=== PATIENT | male | born 1960 | race Caucasian/White ===

== ENCOUNTER 2020-01-06 15:51 | Inpatient (IN) | payer MEDICARE, BC ==
[2020-01-06] MEDS ORDERED: SODIUM CHLORIDE 0.9% 500 ML 500 ML IV STA (16:05)
--- NOTE | 2020-01-06 16:09 | ED ---
General Adult HPI - General Chief complaint: Syncope Stated complaint: Syncope Time Seen by Provider: 01/06/20 15:59 Source: patient, EMS, RN notes reviewed, old records reviewed Mode of arrival: EMS Limitations: no limitations - History of Present Illness Initial comments: 59-year-old male presenting for evaluation of syncope. Patient states he just o rdered a pizza, he had 2 sips of a beer and the next thing he knew he had fallen out of his chair. No preceding palpitations or chest pain. This was the first meal of the day and he had not eaten yet. His 4 PM at the time of arrival. He denies nausea vomiting or abdominal pain. Denies fever. Denies cough or dyspnea. Denies chest pain. He states he did injure his right elbow and right foot. Patient states he has had multiple medication changes over the past several months for his hypertension. He additionally was dealing with some hyponatremia as well as hypokalemia and is currently on potassium supplementation. He was previously on sodium supplementation. - Related Data Allergies Allergy/AdvReac Type Severity Reaction Status Date / Time codeine Allergy Unknown Verified 01/06/20 16:00 Childhood Review of Systems ROS Statement: Those systems with pertinent positive or pertinent negative responses have been documented in the HPI. ROS Other: All systems not noted in ROS Statement are negative. Past Medical History Past Medical History: Hypertension Additional Past Medical History / Comment(s): chronic back pain History of Any Multi-Drug Resistant Organisms: None Reported Past Surgical History: Back Surgery, Orthopedic Surgery Past Psychological History: No Psychological Hx Reported Smoking Status: Never smoker Past Alcohol Use History: Occasional Past Drug Use History: None Reported General Exam Limitations: no limitations General appearance: alert, in no apparent distress Head exam: Present: atraumatic, normocephalic Eye exam: Present: normal appearance, PERRL ENT exam: Present: mucous membranes dry Neck exam: Present: normal inspection. Absent: tenderness, meningismus Respiratory exam: Present: normal lung sounds bilaterally. Absent: respiratory distress, wheezes Cardiovascular Exam: Present: regular rate, normal rhythm GI/Abdominal exam: Present: soft. Absent: distended, tenderness, guarding Extremities exam: Present: other (Skin tear, right elbow, normal range of motion) Neurological exam: Present: alert, oriented X3, CN II-XII intact. Absent: motor sensory deficit Course Vital Signs 01/06/20 15:53 Temperature 97.7 F Pulse Rate 73 Respiratory 18 Rate Blood Pressure 138/87 O2 Sat by Pulse 98 Oximetry EKG Findings - EKG Comments: EKG Findings:: EKG: Normal sinus rhythm with prolonged QT, rate of 72, [place] interval 168, QRS duration 108, QTC 499, no ST segment elevation. Medical Decision Making - Medical Decision Making 59-year-old male with syncopal episode, EKG showing prolonged QT, sinus rhythm. Patient has a chest x-ray with the right pleural effusion, question pneumonia although the patient has not had any cough or fever. I did x-rays right foot for trauma and there is no fracture dislocation. He has significant lateral and abnormalities with no baseline for comparison. He has a sodium of 124, potassium of 2.4. A magnesium of 1.0. And a calcium of 7.4 which is corrected to 8. Patient is given IV magnesium, sodium chloride, both oral and IV potassium in the emergency department. He will be admitted for electrolyte replacement, telemetry, and nephrology consultation. CO2 is elevated, venous gas has been ordered, results pending. - Lab Data Result diagrams: 01/06/20 16:32 01/06/20 16:32 Lab Results 01/06/20 01/06/20 01/06/20 Range/Units 16:32 16:32 16:32 WBC 10.1 (3.8-10.6) k/uL RBC 4.38 (4.30-5.90) m/uL Hgb 12.7 L (13.0-17.5) gm/dL Hct 38.8 L (39.0-53.0) % MCV 88.5 (80.0-100.0) fL MCH 29.0 (25.0-35.0) pg MCHC 32.8 (31.0-37.0) g/dL RDW 15.6 H (11.5-15.5) % Plt Count 520 H (150-450) k/uL Neutrophils % 78 % Lymphocytes % 12 % Monocytes % 7 % Eosinophils % 1 % Basophils % 1 % Neutrophils # 7.9 H (1.3-7.7) k/uL Lymphocytes # 1.2 (1.0-4.8) k/uL Monocytes # 0.7 (0-1.0) k/uL Eosinophils # 0.1 (0-0.7) k/uL Basophils # 0.1 (0-0.2) k/uL PT 10.9 (9.0-12.0) sec INR 1.1 (<1.2) APTT 25.4 (22.0-30.0) sec Sodium (137-145) mmol/L Potassium (3.5-5.1) mmol/L Chloride (98-107) mmol/L Carbon Dioxide (22-30) mmol/L Anion Gap mmol/L BUN (9-20) mg/dL Creatinine (0.66-1.25) mg/dL Est GFR (CKD-EPI)AfAm (>60 ml/min/1.73 sqM) Est GFR (CKD-EPI)NonAf (>60 ml/min/1.73 sqM) Glucose (74-99) mg/dL Calcium (8.4-10.2) mg/dL Magnesium (1.6-2.3) mg/dL Total Bilirubin (0.2-1.3) mg/dL AST (17-59) U/L ALT (4-49) U/L Alkaline Phosphatase (38-126) U/L Troponin I (0.000-0.034) ng/mL Total Protein (6.3-8.2) g/dL Albumin (3.5-5.0) g/dL Urine Color Light Yellow Urine Appearance Clear (Clear) Urine pH 8.0 (5.0-8.0) Ur Specific Neal 1.004 (1.001-1.035) Urine Protein Negative (Negative) Urine Glucose (UA) Negative (Negative) Urine Ketones Negative (Negative) Urine Blood Negative (Negative) Urine Nitrite Negative (Negative) Urine Bilirubin Negative (Negative) Urine Urobilinogen <2.0 (<2.0) mg/dL Ur Leukocyte Esterase Negative (Negative) Serum Alcohol mg/dL 01/06/20 01/06/20 Range/Units 16:32 16:32 WBC (3.8-10.6) k/uL RBC (4.30-5.90) m/uL Hgb (13.0-17.5) gm/dL Hct (39.0-53.0) % MCV (80.0-100.0) fL MCH (25.0-35.0) pg MCHC (31.0-37.0) g/dL RDW (11.5-15.5) % Plt Count (150-450) k/uL Neutrophils % % Lymphocytes % % Monocytes % % Eosinophils % % Basophils % % Neutrophils # (1.3-7.7) k/uL Lymphocytes # (1.0-4.8) k/uL Monocytes # (0-1.0) k/uL Eosinophils # (0-0.7) k/uL Basophils # (0-0.2) k/uL PT (9.0-12.0) sec INR (<1.2) APTT (22.0-30.0) sec Sodium 126 L (137-145) mmol/L Potassium 2.4 L* (3.5-5.1) mmol/L Chloride 75 L (98-107) mmol/L Carbon Dioxide 43 H* (22-30) mmol/L Anion Gap 8 mmol/L BUN 7 L (9-20) mg/dL Creatinine 0.66 (0.66-1.25) mg/dL Est GFR (CKD-EPI)AfAm >90 (>60 ml/min/1.73 sqM) Est GFR (CKD-EPI)NonAf >90 (>60 ml/min/1.73 sqM) Glucose 105 H (74-99) mg/dL Calcium 7.4 L (8.4-10.2) mg/dL Magnesium 1.0 L (1.6-2.3) mg/dL Total Bilirubin 0.7 (0.2-1.3) mg/dL AST 22 (17-59) U/L ALT 10 (4-49) U/L Alkaline Phosphatase 120 (38-126) U/L Troponin I 0.012 (0.000-0.034) ng/mL Total Protein 6.4 (6.3-8.2) g/dL Albumin 3.3 L (3.5-5.0) g/dL Urine Color Urine Appearance (Clear) Urine pH (5.0-8.0) Ur Specific Neal (1.001-1.035) Urine Protein (Negative) Urine Glucose (UA) (Negative) Urine Ketones (Negative) Urine Blood (Negative) Urine Nitrite (Negative) Urine Bilirubin (Negative) Urine Urobilinogen (<2.0) mg/dL Ur Leukocyte Esterase (Negative) Serum Alcohol <10 mg/dL Disposition Clinical Impression: Syncope, Hyponatremia, Hypokalemia, Hypomagnesemia Disposition: ADMITTED IP TO THIS HOSP Condition: Stable Is patient prescribed a controlled substance at d/c from ED?: No Referrals: Nikia Villaseñor MD [Primary Care Provider] - 1-2 days Decision to Admit Reason: Admit from EC Decision Date: 01/06/20 Decision Time: 17:21
[2020-01-06 16:42] LABS: Basophils # (A) 0.1 k/uL (0-0.2); Basophils % (A) 1 %; Eosinophils # (A) 0.1 k/uL (0-0.7); Eosinophils % (A) 1 %; HCT 38.8 % (39.0-53.0); HGB 12.7 gm/dL (13.0-17.5); Lymphocytes # (A) 1.2 k/uL (1.0-4.8); Lymphocytes % (A) 12 %; MCHC 32.8 g/dL (31.0-37.0); MCV 88.5 fL (80.0-100.0); Mean Platelet Volume 6.3; Monocytes # (A) 0.7 k/uL (0-1.0); Monocytes % (A) 7 %; Neutrophils # (A) 7.9 k/uL (1.3-7.7); Neutrophils % (A) 78 %; Platelet Count 520 k/uL (150-450); RBC 4.38 m/uL (4.30-5.90); RDW 15.6 % (11.5-15.5); WBC 10.1 k/uL (3.8-10.6)
[2020-01-06 16:51] LABS: ALT 10 U/L (4-49); AST 22 U/L (17-59); African American GFR (CKD) >90 (>60 ml/min/1.73 sqM); Albumin 3.3 g/dL (3.5-5.0); Alcohol <10 mg/dL; Alkaline Phosphatase 120 U/L (38-126); Blood Urea Nitrogen 7 mg/dL (9-20); Calcium 7.4 mg/dL (8.4-10.2); Chloride 75 mmol/L (98-107); Glucose 105 mg/dL (74-99); Non-African American GFR(CKD) >90 (>60 ml/min/1.73 sqM); Sodium 126 mmol/L (137-145); Total Bilirubin 0.7 mg/dL (0.2-1.3); Total Protein 6.4 g/dL (6.3-8.2)
[2020-01-06 16:54] LABS: Appearance,Urine Clear (Clear); Bilirubin,Urine Negative (Negative); Blood,Urine Negative (Negative); Color,Urine Light Yellow; Glucose,Urine (UA) Negative (Negative); Ketones,Urine Negative (Negative); Leukocyte Esterase,Urine Negative (Negative); Nitrite,Urine Negative (Negative); Protein,Urine Negative (Negative); Specific Gravity,Urine 1.004 (1.001-1.035); Urobilinogen,Urine <2.0 mg/dL (<2.0)
[2020-01-06 16:56] LABS: Anion Gap 8 mmol/L
[2020-01-06 16:57] LABS: INR 1.1 (<1.2); Partial Thromboplastin Time 25.4 sec (22.0-30.0); Prothrombin Time 10.9 sec (9.0-12.0)
--- NOTE | 2020-01-06 17:00 | XR ---
EXAMINATION TYPE: XR chest 2V DATE OF EXAM: 01/06/2020 COMPARISON: NONE HISTORY: Syncope TECHNIQUE: 2 views FINDINGS: There is blunting right costophrenic angle. There is infiltrate right lung base. Left lung is clear. There is no heart failure. There is left shoulder prosthesis. IMPRESSION: Right pleural effusion and right lower lobe pneumonia and atelectasis. Normal heart.
--- NOTE | 2020-01-06 17:01 | XR ---
EXAMINATION TYPE: XR foot complete RT DATE OF EXAM: 01/06/2020 COMPARISON: None HISTORY: Foot pain after falling TECHNIQUE: 3 views FINDINGS: There is mild hallux valgus. There is hyperextension of the MP joints. I see no fracture no r dislocation. Metatarsals are intact. Tarsal bones are intact. IMPRESSION: Multiple hammertoe deformity. No fracture seen.
[2020-01-06 17:03] LABS: Carbon Dioxide 43 mmol/L (22-30); Potassium 2.4 mmol/L (3.5-5.1)
[2020-01-06] MEDS ORDERED: POTASSIUM CHLORIDE ER 20 MEQ TAB.ER PO STA (17:04)
[2020-01-06] MEDS ORDERED: NALOXONE 0.4 MG/ML 1 ML VIAL IV PRN (17:17)
[2020-01-06] MEDS: SODIUM CHLORIDE 0.9% 1,000 ML IV SCH (17:22)
[2020-01-06] MEDS: MAGNESIUM SULFATE-D5W PMX 1 GM in DEXTROSE/WATER 1 100ML.BAG IVPB SCH ×2 (17:23→18:47)
[2020-01-06] MEDS: POTASSIUM CHLORIDE 10 MEQ in WATER FOR INJECTION 1 100ML.BAG IVPB SCH ×4 (17:23→21:20)
[2020-01-06 17:51] LABS: VBG PH 7.47 (7.31-7.41)
[2020-01-06] MEDS: ACETAMINOPHEN TAB 325 MG TAB PO PRN (23:20)
[2020-01-07] MEDS: SODIUM CHLORIDE 0.9% 1,000 ML IV SCH ×2 (06:37→23:29)
[2020-01-07] MEDS: IPRATROPIUM 0.5 MG/2.5 ML NEBU INHALATION SCH ×4 (07:48→20:35)
[2020-01-07] MEDS: PANTOPRAZOLE 40 MG TABLET PO SCH ×3 (08:57→20:56)
[2020-01-07] MEDS: ACETAMINOPHEN TAB 325 MG TAB PO PRN (08:58)
[2020-01-07] MEDS: ISOSORBIDE MONONITRATE ER 30 MG TAB.ER.24H PO SCH (08:58)
[2020-01-07] MEDS: LOSARTAN 50 MG TAB PO SCH ×2 (08:58→20:56)
[2020-01-07] MEDS: FLUDROCORTISONE 0.1 MG TAB PO SCH ×2 (08:59→23:31)
[2020-01-07] MEDS ORDERED: POTASSIUM CHLORIDE ER 10 MEQ TAB.ER.PRT PO SCH (09:00)
[2020-01-07] MEDS ORDERED: BUMETANIDE 1 MG TAB PO SCH (09:00)
[2020-01-07 09:14] LABS: HGB 12.2 gm/dL (13.0-17.5); MCH 29.8 pg (25.0-35.0); MCHC 32.9 g/dL (31.0-37.0); MCV 90.7 fL (80.0-100.0); Mean Platelet Volume 6.3; Platelet Count 477 k/uL (150-450); RBC 4.08 m/uL (4.30-5.90); RDW 15.7 % (11.5-15.5)
[2020-01-07 09:21] LABS: African American GFR (CKD) >90 (>60 ml/min/1.73 sqM); Blood Urea Nitrogen 7 mg/dL (9-20); Calcium 7.5 mg/dL (8.4-10.2); Chloride 81 mmol/L (98-107); Glucose 123 mg/dL (74-99); Magnesium 1.5 mg/dL (1.6-2.3); Non-African American GFR(CKD) >90 (>60 ml/min/1.73 sqM); Sodium 129 mmol/L (137-145)
[2020-01-07 09:28] LABS: Anion Gap 7 mmol/L
[2020-01-07 09:32] LABS: Carbon Dioxide 41 mmol/L (22-30); Potassium 2.4 mmol/L (3.5-5.1)
[2020-01-07] MEDS ORDERED: POTASSIUM CHLORIDE ER 20 MEQ TAB.ER PO STA (10:36)
[2020-01-07] MEDS ORDERED: MAGNESIUM SULFATE-D5W PMX 1 GM in DEXTROSE/WATER 1 100ML.BAG IVPB ONE (11:00)
[2020-01-07] MEDS ORDERED: POTASSIUM CHLORIDE 20 MEQ in WATER FOR INJECTION 1 100ML.BAG IVPB ONE (11:00)
--- NOTE | 2020-01-07 13:30 | P.NPCON ---
History of Present Illness - Reason for Consult Consult date: 01/07/20 hyponatremia - Chief Complaint Syncope with multiple electrolyte abnormalities - History of Present Illness Is a 59-year-old male who is admitted after having a syncopal episode. He was found to have sodium of 126 on admission, potassium of 2.4, bicarb of 43, creatinine of 0.6. Magnesium was 1 calcium is 7.4. Blood sugar was 105. His medications included Bumex, Florinef 0.1 twice a day, multiple inhalers, potassium,. Patient denies any nausea vomiting diarrhea abdominal pain no fever chills cough. He was diagnosed with adrenal insufficiency. He does not remember having had any ACTH stimulation test. Denies any history of alcohol use. Other than hypertension, asthma, and adrenal insufficiency which was diagnosed recently, no other chronic medical conditions. Past Medical History Past Medical History: Hypertension Additional Past Medical History / Comment(s): chronic back pain History of Any Multi-Drug Resistant Organisms: None Reported Past Surgical History: Back Surgery, Orthopedic Surgery Past Psychological History: No Psychological Hx Reported Smoking Status: Never smoker Past Alcohol Use History: Occasional Past Drug Use History: None Reported Medications and Allergies Home Medications Medication Instructions Recorded Confirmed Type Albuterol Sulfate [Albuterol 2 puff PO RT-Q4H PRN 01/06/20 01/06/20 History Sulfate Hfa] Bumetanide 2 mg PO TID 01/06/20 01/06/20 History Cetirizine HCl 10 mg PO HS 01/06/20 01/06/20 History Fludrocortisone [Florinef] 0.1 mg PO BID 01/06/20 01/06/20 History Isosorbide Mononitrate ER [Imdur] 30 mg PO DAILY 01/06/20 01/06/20 History Losartan [Cozaar] 50 mg PO BID 01/06/20 01/06/20 History Montelukast Sodium [Singulair] 10 mg PO HS 01/06/20 01/06/20 History Omeprazole 20 mg PO TID 01/06/20 01/06/20 History Potassium Chloride [Klor-Con 10] 10 meq PO DAILY 01/06/20 01/06/20 History Tiotropium [place] [Spiriva 2 spray INHALATION RT-DAILY 01/06/20 01/06/20 History Respimat] Allergies Allergy/AdvReac Type Severity Reaction Status Date / Time codeine Allergy Unknown Verified 01/06/20 17:48 Childhood Physical Exam Vitals: Vital Signs Temp Pulse Pulse Resp BP BP Pulse Ox 01/07/20 11:46 98.2 F 69 18 176/96 96 01/07/20 11:23 78 01/07/20 11:10 78 01/07/20 08:00 98.1 F 75 77 18 161/84 95 01/07/20 07:49 75 95 01/07/20 03:59 98.2 F 69 19 164/84 96 01/07/20 00:00 98 F 79 16 118/73 93 L 01/06/20 20:00 98.4 F 75 18 163/83 97 01/06/20 17:50 98.1 F 70 18 142/80 98 01/06/20 17:44 98.4 F 18 99 01/06/20 15:53 97.7 F 73 18 138/87 98 Intake and Output 01/06/20 01/07/20 01/07/20 22:59 06:59 14:59 Intake Total 240 Output Total 350 175 Balance -350 65 Intake: Oral 240 Output: Urine 350 175 Other: Voiding Method Toilet Toilet Toilet Weight 103.419 kg 102.1 kg Examination he is awake alert oriented comfortable HEENT exam no JVP neck is supple no facial asymmetry Lungs are clear to auscultation good air entry bilaterally Heart sounds are unremarkable for any murmur rub gallop Abdomen soft nontender no organomegaly ascites masses Extremity exam reveals chronic good duration of the skin no edema Neurologically awake alert oriented Results - Lab Results Most recent lab results Calcium 7.5 mg/dL (8.4-10.2) L 01/07/20 08:45 Magnesium 1.5 mg/dL (1.6-2.3) L 01/07/20 08:45 01/07/20 08:45 01/07/20 08:45 Assessment and Plan Assessment: Impression 1. Syncope secondary to multiple electrolyte abnormalities including hyponatremia hypokalemia hypomagnesemia. 2. Cause of hyponatremia, hyperkalemia and metabolic alkalosis his diuretic use. Her sodium was 126, potassium was 2.4, bicarb is 43 3. History of adrenal insufficiency although clear if he had a satisfactory ACTH stimulation test. Was started on Florinef recently about few weeks ago. 4. Cause of hypomagnesemia likely from Bumex. Magnesium was 1 5. Cause of hypocalcemia from hypomagnesemia 6. History of asthma 7. Hypertension Recommendation 1. Replace magnesium with 4 g slowly over 4 hours IV piggyback 2. Replace potassium, his deficit is large so will give him 40 mEq every 2 hours 3. Continue IV normal saline, increase the rate to 150 mL 4. Check urine sodium, urine osmolality, urine potassium, urine chloride 5. Patient would like to be discharged as he has responsibilities at home. We'll try to see if we can do it ACTH stimulation test
[2020-01-07] MEDS: MAGNESIUM SULFATE-D5W PMX 1 GM in DEXTROSE/WATER 1 100ML.BAG IVPB SCH ×4 (14:31→18:30)
[2020-01-07] MEDS: POTASSIUM CHLORIDE ER 20 MEQ TAB.ER PO SCH ×4 (14:31→23:50)
[2020-01-07] MEDS ORDERED: COSYNTROPIN 0.25 MG VIAL IVP ONE (15:00)
[2020-01-07 18:43] LABS: African American GFR (CKD) >90 (>60 ml/min/1.73 sqM); Anion Gap 7 mmol/L; Blood Urea Nitrogen 10 mg/dL (9-20); Calcium 7.6 mg/dL (8.4-10.2); Carbon Dioxide 37 mmol/L (22-30); Chloride 84 mmol/L (98-107); Glucose 142 mg/dL (74-99); Non-African American GFR(CKD) 86 (>60 ml/min/1.73 sqM); Sodium 128 mmol/L (137-145)
[2020-01-07 18:45] LABS: Potassium 2.6 mmol/L (3.5-5.1)
[2020-01-07 19:20] LABS: African American GFR (CKD) >90 (>60 ml/min/1.73 sqM); Anion Gap 7 mmol/L; Blood Urea Nitrogen 10 mg/dL (9-20); Calcium 7.4 mg/dL (8.4-10.2); Carbon Dioxide 35 mmol/L (22-30); Chloride 85 mmol/L (98-107); Glucose 162 mg/dL (74-99); Non-African American GFR(CKD) >90 (>60 ml/min/1.73 sqM); Potassium 2.9 mmol/L (3.5-5.1); Sodium 127 mmol/L (137-145)
[2020-01-07] MEDS: MONTELUKAST 10 MG TAB PO SCH (20:56)
[2020-01-07] MEDS: LORATADINE 10 MG TAB PO SCH (20:56)
[2020-01-08] MEDS: amLODIPine 10 MG TAB PO SCH ×2 (00:34→10:06)
[2020-01-08] MEDS: SODIUM CHLORIDE 0.9% 1,000 ML IV SCH ×3 (05:15→16:06)
[2020-01-08 06:17] LABS: Basophils % (A) 0 %; Eosinophils # (A) 0.3 k/uL (0-0.7); Eosinophils % (A) 2 %; HCT 38.9 % (39.0-53.0); HGB 12.4 gm/dL (13.0-17.5); Lymphocytes # (A) 1.6 k/uL (1.0-4.8); Lymphocytes % (A) 12 %; MCH 29.2 pg (25.0-35.0); MCHC 31.9 g/dL (31.0-37.0); MCV 91.6 fL (80.0-100.0); Mean Platelet Volume 6.2; Monocytes # (A) 0.6 k/uL (0-1.0); Monocytes % (A) 5 %; Neutrophils # (A) 9.9 k/uL (1.3-7.7); Neutrophils % (A) 79 %; Platelet Count 418 k/uL (150-450); RBC 4.25 m/uL (4.30-5.90); RDW 15.6 % (11.5-15.5); WBC 12.5 k/uL (3.8-10.6)
[2020-01-08 06:46] LABS: African American GFR (CKD) >90 (>60 ml/min/1.73 sqM); Anion Gap 7 mmol/L; Blood Urea Nitrogen 7 mg/dL (9-20); Calcium 7.4 mg/dL (8.4-10.2); Carbon Dioxide 33 mmol/L (22-30); Chloride 91 mmol/L (98-107); Glucose 103 mg/dL (74-99); Magnesium 2.3 mg/dL (1.6-2.3); Non-African American GFR(CKD) >90 (>60 ml/min/1.73 sqM); Potassium 2.9 mmol/L (3.5-5.1); Sodium 131 mmol/L (137-145)
--- NOTE | 2020-01-08 08:13 | P.HPIM ---
History of Present Illness H&P Date: 01/07/20 Chief Complaint: Syncope 59-year-old male presenting for evaluation of syncope. Patient states he just ordered a pizza, he had 2 sips of a beer and the next thing he knew he had fallen out of his chair. No preceding palpitations or chest pain. This was the first meal of the day and he had not eaten yet. His 4 PM at the time of arrival. He denies nausea vomiting or abdominal pain. Denies fever. Denies cough or dyspnea. Denies chest pain. He states he did injure his right elbow and right foot. Patient states he has had multiple medication changes over the past several months for his hypertension. He additionally was dealing with some hyponatremia as well as hypokalemia and is currently on potassium supplementation. He was previously on sodium supplementation. Patient was worked up in ED with an EKG showing normal sinus rhythm with prolonged QT; chest x-ray showed right pleural effusion with questionable pneumonia; x-ray of the right foot was done without any acute abnormalities; blood work revealed a sodium of 124, potassium of 2.4 and magnesium of 1.0 with calcium of 7.4 corrected to 8.2; patient was given IV magnesium, IV and oral potassium and sodium chloride infusion in ED and is admitted to the hospital for further electrolyte replacement telemetry and nephrology consultation Review of Systems REVIEW OF SYSTEMS: CONSTITUTIONAL: No fever, no malaise, no fatigue. HEENT: No recent visual problems or hearing problems. Denied any sore throat. CARDIOVASCULAR: No chest pain, orthopnea, PND, no palpitations, no syncope. PULMONARY: No shortness of breath, no cough, no hemoptysis. GASTROINTESTINAL: No diarrhea, no nausea, no vomiting, no abdominal pain. NEUROLOGICAL: No headaches, no weakness, no numbness. HEMATOLOGICAL: Denies any bleeding or petechiae. GENITOURINARY: Denies any burning micturition, frequency, or urgency. MUSCULOSKELETAL/RHEUMATOLOGICAL: Denies any joint pain, swelling, or any muscle pain. ENDOCRINE: Denies any polyuria or polydipsia. The rest of the 14-point review of systems is negative. Past Medical History Past Medical History: Hypertension Additional Past Medical History / Comment(s): chronic back pain History of Any Multi-Drug Resistant Organisms: None Reported Past Surgical History: Back Surgery, Orthopedic Surgery Past Psychological History: No Psychological Hx Reported Smoking Status: Never smoker Past Alcohol Use History: Occasional Past Drug Use History: None Reported Medications and Allergies Home Medications Medication Instructions Recorded Confirmed Type Albuterol Sulfate [Albuterol 2 puff PO RT-Q4H PRN 01/06/20 01/06/20 History Sulfate Hfa] Bumetanide 2 mg PO TID 01/06/20 01/06/20 History Cetirizine HCl 10 mg PO HS 01/06/20 01/06/20 History Fludrocortisone [Florinef] 0.1 mg PO BID 01/06/20 01/06/20 History Isosorbide Mononitrate ER [Imdur] 30 mg PO DAILY 01/06/20 01/06/20 History Losartan [Cozaar] 50 mg PO BID 01/06/20 01/06/20 History Montelukast Sodium [Singulair] 10 mg PO HS 01/06/20 01/06/20 History Omeprazole 20 mg PO TID 01/06/20 01/06/20 History Potassium Chloride [Klor-Con 10] 10 meq PO DAILY 01/06/20 01/06/20 History Tiotropium [place] [Spiriva 2 spray INHALATION RT-DAILY 01/06/20 01/06/20 History Respimat] Allergies Allergy/AdvReac Type Severity Reaction Status Date / Time codeine Allergy Unknown Verified 01/06/20 17:48 Childhood Physical Exam Vitals: Vital Signs Temp Pulse Pulse Resp BP BP Pulse Ox 01/07/20 08:00 98.1 F 75 77 18 161/84 95 01/07/20 07:49 75 95 01/07/20 03:59 98.2 F 69 19 164/84 96 01/07/20 00:00 98 F 79 16 118/73 93 L 01/06/20 20:00 98.4 F 75 18 163/83 97 01/06/20 17:50 98.1 F 70 18 142/80 98 01/06/20 17:44 98.4 F 18 99 01/06/20 15:53 97.7 F 73 18 138/87 98 Intake and Output 01/06/20 01/07/20 01/07/20 22:59 06:59 14:59 Intake Total 240 Output Total 350 175 Balance -350 65 Intake: Oral 240 Output: Urine 350 175 Other: Voiding Method Toilet Toilet Toilet Weight 103.419 kg 102.1 kg - Constitutional General appearance: Present: average body habitus, cooperative, no acute distress - EENT Eyes: Present: anicteric sclerae, EOMI, PERRLA, normal appearance ENT: Present: hearing grossly normal, normal oropharynx Ears: bilateral: normal - Neck Neck: Present: normal ROM. Absent: lymphadenopathy, rigidity, thyromegaly Carotids: negative: bruit present Thyroid: bilateral: normal size, negative: enlarged, nodule - Respiratory Respiratory: bilateral: CTA, negative: rales, rhonchi, wheezing - Cardiovascular Rhythm: regular Heart sounds: normal: S1, S2 Abnormal Heart Sounds: Absent: systolic murmur, diastolic murmur - Gastrointestinal General gastrointestinal: Present: normal bowel sounds, soft. Absent: distended, organomegaly, tenderness - Genitourinary Genitourinary Comment(s): deferred - Integumentary Integumentary: Present: normal turgor. Absent: jaundiced, rash, ulcer - Neurologic Neurologic: Present: CNII-XII intact. Absent: focal deficits - Musculoskeletal Musculoskeletal: Present: gait normal, strength equal bilaterally - Psychiatric Psychiatric: Present: A&O x's 3, appropriate affect, intact judgment & insight Results CBC & Chem 7: 01/08/20 05:57 01/08/20 05:57 Labs: Abnormal Lab Results - Last 24 Hours (Table) 01/06/20 01/06/20 01/06/20 Range/Units 16:32 16:32 17:40 RBC (4.30-5.90) m/uL Hgb 12.7 L (13.0-17.5) gm/dL Hct 38.8 L (39.0-53.0) % RDW 15.6 H (11.5-15.5) % Plt Count 520 H (150-450) k/uL Neutrophils # 7.9 H (1.3-7.7) k/uL VBG pH 7.47 H (7.31-7.41) VBG pCO2 59 H (37-51) mmHg VBG HCO3 42 H (24-28) mmol/L Sodium 126 L (137-145) mmol/L Potassium 2.4 L* (3.5-5.1) mmol/L Chloride 75 L (98-107) mmol/L Carbon Dioxide 43 H* (22-30) mmol/L BUN 7 L (9-20) mg/dL Glucose 105 H (74-99) mg/dL Calcium 7.4 L (8.4-10.2) mg/dL Magnesium 1.0 L (1.6-2.3) mg/dL Albumin 3.3 L (3.5-5.0) g/dL 01/07/20 01/07/20 Range/Units 08:45 08:45 RBC 4.08 L (4.30-5.90) m/uL Hgb 12.2 L (13.0-17.5) gm/dL Hct 37.0 L (39.0-53.0) % RDW 15.7 H (11.5-15.5) % Plt Count 477 H (150-450) k/uL Neutrophils # (1.3-7.7) k/uL VBG pH (7.31-7.41) VBG pCO2 (37-51) mmHg VBG HCO3 (24-28) mmol/L Sodium 129 L (137-145) mmol/L Potassium 2.4 L* (3.5-5.1) mmol/L Chloride 81 L (98-107) mmol/L Carbon Dioxide 41 H* (22-30) mmol/L BUN 7 L (9-20) mg/dL Glucose 123 H (74-99) mg/dL Calcium 7.5 L (8.4-10.2) mg/dL Magnesium 1.5 L (1.6-2.3) mg/dL Albumin (3.5-5.0) g/dL Thrombosis Risk Factor Assmnt - Choose All That Apply Each Factor Represents 1 point: Age 41-60 years, Swollen legs (current) Thrombosis Risk Factor Assessment Total Risk Factor Score: 2 Thrombosis Risk Factor Assessment Level: Low Risk Assessment and Plan Assessment: 1. Acute syncope; possibly related to multiple electrolyte abnormalities - Patient does report history of adrenal insufficiency; patient has been evaluated by nephrology; electrolyte abnormalities most likely is related to diuretic use; no need for further syncope workup 2. Severe hyponatremia; patient remains on IV fluids in form of normal saline at a rate of 1 50 mL an hour; showing slow upward trend of serum sodium; we will monitor electrolytes closely and make adjustments accordingly 3. Critical hyperkalemia; patient has been receiving IV and oral potassium; potassium levels remained low at 2.4; nephrology recommending to supplement 40 mEq of potassium every 2 hours with close monitoring of levels; make changes accordingly 4. Critical hypomagnesemia; patient received 2 g of magnesium in ED; magnesium levels remain low at 1.5; patient will be receiving a supplement of 4 g of IV magnesium slow over 4 hours; repeat levels in a.m. 5. Chronic intermittent asthma; not in exacerbation; continue with Spiriva and Singulair 10 mg daily 6. Hypertension; losartan 50 mg twice a day 7. Adrenal insufficiency; patient is currently on Florinef 0.1 mg twice a day which was started a few weeks ago DVT prophylaxis; SCDs CODE STATUS; full code
[2020-01-08] MEDS: IPRATROPIUM 0.5 MG/2.5 ML NEBU INHALATION SCH ×4 (08:25→21:05)
[2020-01-08] MEDS ORDERED: amLODIPine 10 MG TAB PO SCH (09:00)
[2020-01-08] MEDS: PANTOPRAZOLE 40 MG TABLET PO SCH ×3 (10:05→20:17)
[2020-01-08] MEDS: LOSARTAN 50 MG TAB PO SCH ×2 (10:05→20:17)
[2020-01-08] MEDS: FLUDROCORTISONE 0.1 MG TAB PO SCH ×2 (10:05→20:17)
[2020-01-08] MEDS: ISOSORBIDE MONONITRATE ER 30 MG TAB.ER.24H PO SCH (10:06)
[2020-01-08] MEDS: POTASSIUM CHLORIDE 10 MEQ in WATER FOR INJECTION 1 100ML.BAG IVPB SCH ×5 (10:06→15:28)
[2020-01-08] MEDS ORDERED: POTASSIUM CHLORIDE ER 20 MEQ TAB.ER PO STA (10:13)
--- NOTE | 2020-01-08 13:57 | P.PN ---
Subjective Progress Note Date: 01/08/20 Principal diagnosis: This is a 59-year-old male seen in consultation because of hyponatremia. He came in because of syncopal episode and a sodium of 126 on admission. He had multiple electrolyte abnormalities that included hypokalemia and hypomagnesemia and a metabolic alkalosis all thought to be from diuretic use. Additionally he was recently suspected to have adrenal insufficiency was started on Florinef. His sodium improved with IV fluids. Potassium and magnesium is replaced This morning he is feeling fine, he would like to be discharged. This morning's labs, Sodium is up to 131. Potassium is 2.9 bicarb improved from 41-33. His ACTH stimulation test with 250 mics off ACTH showed a serum cortisol baseline of 10, post-ACTH it went up to 13 only demonstrating adrenal insufficiency Objective - Vital Signs Vital signs: Vital Signs Temp 97.9 F 01/08/20 12:00 Pulse 74 01/08/20 12:00 Resp 18 01/08/20 12:00 BP 149/84 01/08/20 12:00 Pulse Ox 94 L 01/08/20 12:00 Intake & Output 01/07/20 01/08/20 01/08/20 18:59 06:59 18:59 Intake Total 720 800 Output Total 825 700 675 Balance -105 -700 125 Weight 104.1 kg Intake: Oral 720 800 Output: Urine 825 700 675 Other: Voiding Method Toilet Toilet Toilet Urinal Urinal # Bowel Movements 1 On examination is awake alert oriented comfortable HEENT exam no JVP neck is supple no facial asymmetry Lungs clear to auscultation good air entry bilaterally Heart sounds are unremarkable no murmur rub gallop Abdomen soft nontender Extremity exam no edema. Neurologically awake alert oriented - Labs CBC & Chem 7: 01/08/20 05:57 01/08/20 05:57 Labs: Abnormal Lab Results - Last 24 Hours (Table) 01/07/20 01/07/20 01/08/20 Range/Units 16:24 18:55 05:57 WBC 12.5 H (3.8-10.6) k/uL RBC 4.25 L (4.30-5.90) m/uL Hgb 12.4 L (13.0-17.5) gm/dL Hct 38.9 L (39.0-53.0) % RDW 15.6 H (11.5-15.5) % Neutrophils # 9.9 H (1.3-7.7) k/uL Sodium 128 L 127 L (137-145) mmol/L Potassium 2.6 L* 2.9 L (3.5-5.1) mmol/L Chloride 84 L 85 L (98-107) mmol/L Carbon Dioxide 37 H 35 H (22-30) mmol/L BUN (9-20) mg/dL Glucose 142 H 162 H (74-99) mg/dL Calcium 7.6 L 7.4 L (8.4-10.2) mg/dL 01/08/20 Range/Units 05:57 WBC (3.8-10.6) k/uL RBC (4.30-5.90) m/uL Hgb (13.0-17.5) gm/dL Hct (39.0-53.0) % RDW (11.5-15.5) % Neutrophils # (1.3-7.7) k/uL Sodium 131 L (137-145) mmol/L Potassium 2.9 L (3.5-5.1) mmol/L Chloride 91 L (98-107) mmol/L Carbon Dioxide 33 H (22-30) mmol/L BUN 7 L (9-20) mg/dL Glucose 103 H (74-99) mg/dL Calcium 7.4 L (8.4-10.2) mg/dL Assessment and Plan Assessment: Impression 1. Syncope secondary to multiple electrolyte abnormalities including hyponatremia hypokalemia hypomagnesemia. 2. Cause of hyponatremia, hyperkalemia and metabolic alkalosis - diuretic use. sodium was 126, potassium was 2.4, bicarb is 43. Responded very well to IV fluids sodium is 131 this morning. 3. Hypokalemia with large potassium deficit potassium remains 2.9 3. History of adrenal insufficiency although clear if he had a satisfactory ACTH stimulation test. Was started on Florinef recently about few weeks ago. 4. Cause of hypomagnesemia likely from Bumex. Magnesium was 1, improved to 2.3 5. Cause of hypocalcemia from hypomagnesemia 6. History of asthma 7. Hypertension Recommendation 1. Replace potassium with 80 mEq of potassium, 40 mEq every 2 hours 3 doses 2. Continue IV normal saline, increase the rate to 150 mL, until discharged 3. If is to be discharged if he needs to have her labs drawn tomorrow. 4. Recommend endocrinology consult regarding the adrenal insufficiency.
[2020-01-08] MEDS: POTASSIUM CHLORIDE ER 20 MEQ TAB.ER PO SCH ×3 (15:18→20:18)
[2020-01-08] MEDS: ALBUTEROL NEBULIZED 2.5 MG/3 ML INHALATION PRN (16:14)
--- NOTE | 2020-01-08 16:42 | P.PN ---
Subjective Progress Note Date: 01/08/20 Principal diagnosis: Syncope/multiple electrolyte imbalance 59-year-old male presenting for evaluation of syncope. Patient states he just ordered a pizza, he had 2 sips of a beer and the next thing he knew he had fallen out of his chair. No preceding palpitations or chest pain. This was the first meal of the day and he had not eaten yet. His 4 PM at the time of arrival. He denies nausea vomiting or abdominal pain. Denies fever. Denies cough or dyspnea. Denies chest pain. He states he did injure his right elbow and right foot. Patient states he has had multiple medication changes over the past several months for his hypertension. He additionally was dealing with some hyponatremia as well as hypokalemia and is currently on potassium supplementation. He was previously on sodium supplementation. Patient was worked up in ED with an EKG showing normal sinus rhythm with prolonged QT; chest x-ray showed right pleural effusion with questionable pneumonia; x-ray of the right foot was done without any acute abnormalities; blood work revealed a sodium of 124, potassium of 2.4 and magnesium of 1.0 with calcium of 7.4 corrected to 8.2; patient was given IV magnesium, IV and oral potassium and sodium chloride infusion in ED and is admitted to the hospital for further electrolyte replacement telemetry and nephrology consultation 01/08/2020 Patient does report improvement in symptoms; denies any chest pain or shortness of breath; review of vital signs revealed an elevated blood pressure 155/90 Labs are reviewed, potassium of 2.9, magnesium 2.3, sodium 131; patient is still receiving KCl 20 mg IV with 3 doses remaining; we will add KCl 40 mg by mouth 1 ACTH stimulation test was ordered and is elevated with ACTH level of 250 mics and a serum cortisol at her baseline of 10 with post ACTH up to 13 indicating adrenal insufficiency; patient is on Florinef and unsure if he has been evaluated by endocrinology; we will continue with electrolyte supplement with plan for possible discharge in next 24 hours and 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; patient takes Bumex 2 mg by mouth 3 times a day at home which remains on hold Objective - Vital Signs Vital signs: Vital Signs Temp 97.9 F 01/08/20 12:00 Pulse 74 01/08/20 16:27 Resp 18 01/08/20 12:00 BP 149/84 01/08/20 12:00 Pulse Ox 94 L 01/08/20 12:00 Intake & Output 01/07/20 01/08/20 01/08/20 18:59 06:59 18:59 Intake Total 720 1040 Output Total 099 465 8696 Balance -105 700 -632 Weight 104.1 kg Intake: Oral 720 1040 Output: Urine 418 749 6512 Other: Voiding Method Toilet Toilet Toilet Urinal Urinal # Bowel Movements 1 - Exam - Constitutional General appearance: Present: average body habitus, cooperative, no acute distress - EENT Eyes: Present: anicteric sclerae, EOMI, PERRLA, normal appearance ENT: Present: hearing grossly normal, normal oropharynx Ears: bilateral: normal - Neck Neck: Present: normal ROM. Absent: lymphadenopathy, rigidity, thyromegaly Carotids: negative: bruit present Thyroid: bilateral: normal size, negative: enlarged, nodule - Respiratory Respiratory: bilateral: CTA, negative: rales, rhonchi, wheezing - Cardiovascular Rhythm: regular Heart sounds: normal: S1, S2 Abnormal Heart Sounds: Absent: systolic murmur, diastolic murmur - Gastrointestinal General gastrointestinal: Present: normal bowel sounds, soft. Absent: distended, organomegaly, tenderness - Genitourinary Genitourinary Comment(s): deferred - Integumentary Integumentary: Present: normal turgor. Absent: jaundiced, rash, ulcer - Neurologic Neurologic: Present: CNII-XII intact. Absent: focal deficits - Musculoskeletal Musculoskeletal: Present: gait normal, strength equal bilaterally - Psychiatric Psychiatric: Present: A&O x's 3, appropriate affect, intact judgment & insight - Labs CBC & Chem 7: 01/08/20 05:57 01/08/20 05:57 Labs: Abnormal Lab Results - Last 24 Hours (Table) 01/07/20 01/07/20 01/08/20 Range/Units 16:24 18:55 05:57 WBC 12.5 H (3.8-10.6) k/uL RBC 4.25 L (4.30-5.90) m/uL Hgb 12.4 L (13.0-17.5) gm/dL Hct 38.9 L (39.0-53.0) % RDW 15.6 H (11.5-15.5) % Neutrophils # 9.9 H (1.3-7.7) k/uL Sodium 128 L 127 L (137-145) mmol/L Potassium 2.6 L* 2.9 L (3.5-5.1) mmol/L Chloride 84 L 85 L (98-107) mmol/L Carbon Dioxide 37 H 35 H (22-30) mmol/L BUN (9-20) mg/dL Glucose 142 H 162 H (74-99) mg/dL Calcium 7.6 L 7.4 L (8.4-10.2) mg/dL 01/08/20 Range/Units 05:57 WBC (3.8-10.6) k/uL RBC (4.30-5.90) m/uL Hgb (13.0-17.5) gm/dL Hct (39.0-53.0) % RDW (11.5-15.5) % Neutrophils # (1.3-7.7) k/uL Sodium 131 L (137-145) mmol/L Potassium 2.9 L (3.5-5.1) mmol/L Chloride 91 L (98-107) mmol/L Carbon Dioxide 33 H (22-30) mmol/L BUN 7 L (9-20) mg/dL Glucose 103 H (74-99) mg/dL Calcium 7.4 L (8.4-10.2) mg/dL Assessment and Plan Assessment: 1. Acute syncope; possibly related to multiple electrolyte abnormalities - Patient does report history of adrenal insufficiency; patient has been e valuated by nephrology; electrolyte abnormalities most likely is related to diuretic use; no need for further syncope workup 2. Severe hyponatremia; patient remains on IV fluids in form of normal saline at a rate of 1 50 mL an hour; showing slow upward trend of serum sodium; we will monitor electrolytes closely and make adjustments accordingly 3. Critical hyperkalemia; patient has been receiving IV and oral potassium; potassium levels remained low at 2.4; nephrology recommending to supplement 40 mEq of potassium every 2 hours with close monitoring of levels; make changes accordingly 4. Critical hypomagnesemia; patient received 2 g of magnesium in ED; magnesium levels remain low at 1.5; patient will be receiving a supplement of 4 g of IV magnesium slow over 4 hours; repeat levels in a.m. 5. Chronic intermittent asthma; not in exacerbation; continue with Spiriva and Singulair 10 mg daily 6. Hypertension; losartan 50 mg twice a day 7. Adrenal insufficiency; patient is currently on Florinef 0.1 mg twice a day which was started a few weeks ago DVT prophylaxis; SCDs CODE STATUS; full code
[2020-01-08] MEDS: LORATADINE 10 MG TAB PO SCH (20:17)
[2020-01-08] MEDS: MONTELUKAST 10 MG TAB PO SCH (20:17)
[2020-01-09] MEDS: SODIUM CHLORIDE 0.9% 1,000 ML IV SCH ×2 (00:55→06:41)
[2020-01-09 03:57] VITALS: RESP 19
[2020-01-09] MEDS: POTASSIUM CHLORIDE 10 MEQ in WATER FOR INJECTION 1 100ML.BAG IVPB SCH (04:46)
[2020-01-09 07:10] LABS: African American GFR (CKD) >90 (>60 ml/min/1.73 sqM); Anion Gap 7 mmol/L; Blood Urea Nitrogen 6 mg/dL (9-20); Calcium 7.8 mg/dL (8.4-10.2); Carbon Dioxide 29 mmol/L (22-30); Chloride 96 mmol/L (98-107); Glucose 95 mg/dL (74-99); Non-African American GFR(CKD) >90 (>60 ml/min/1.73 sqM); Potassium 3.5 mmol/L (3.5-5.1); Sodium 132 mmol/L (137-145)
[2020-01-09] MEDS: FLUDROCORTISONE 0.1 MG TAB PO SCH (08:25)
[2020-01-09] MEDS: amLODIPine 10 MG TAB PO SCH (08:25)
[2020-01-09] MEDS: PANTOPRAZOLE 40 MG TABLET PO SCH (08:25)
[2020-01-09] MEDS: ISOSORBIDE MONONITRATE ER 30 MG TAB.ER.24H PO SCH (08:25)
[2020-01-09] MEDS: LOSARTAN 50 MG TAB PO SCH (08:26)
[2020-01-09] MEDS: ALBUTEROL NEBULIZED 2.5 MG/3 ML INHALATION PRN (08:32)
[2020-01-09] MEDS: IPRATROPIUM 0.5 MG/2.5 ML NEBU INHALATION SCH ×2 (08:32→12:09)
[2020-01-09 08:34] VITALS: BP 174/87; TEMP 97.8
[2020-01-09 08:45] VITALS: PULSE 88
[2020-01-09] MEDS ORDERED: POTASSIUM CHLORIDE ER 20 MEQ TAB.ER PO STA (12:02)
--- NOTE | 2020-01-09 12:06 | P.PN ---
Subjective Patient is seen in follow-up for electrolyte imbalance. Potassium better. Sodium also improved. GFR at baseline. No vomiting or diarrhea. Good urine output. Blood pressure on the higher side. Vital signs are stable. General: The patient appeared well nourished and normally developed. HEENT: Head exam is unremarkable. Neck is without jugular venous distension. LUNGS: Lungs are clear to auscultation and percussion. Breath sounds decreased. HEART: Rate and Rhythm are regular. ABDOMEN: Soft, nontender. EXTREMITITES: No clubbing, cyanosis, or edema. Objective - Vital Signs Vital signs: Vital Signs Temp 97.8 F 01/09/20 08:31 Pulse 88 01/09/20 08:44 Resp 19 01/09/20 08:31 BP 174/87 01/09/20 08:31 Pulse Ox 98 01/09/20 08:31 Intake & Output 01/08/20 01/09/20 01/09/20 18:59 06:59 18:59 Intake Total 1280 660 Output Total 2475 300 500 Balance -1195 -300 160 Weight 103.9 kg Intake: Oral 1280 660 Output: Urine 2475 300 500 Other: Voiding Method Toilet Toilet Urinal Urinal # Voids 1 - Labs CBC & Chem 7: 01/08/20 05:57 01/09/20 06:26 Labs: Abnormal Lab Results - Last 24 Hours (Table) 01/09/20 Range/Units 06:26 Sodium 132 L (137-145) mmol/L Chloride 96 L (98-107) mmol/L BUN 6 L (9-20) mg/dL Calcium 7.8 L (8.4-10.2) mg/dL Assessment and Plan Plan: Assessment: 1. Hyponatremia. Hypovolemic and also component of adrenal insufficiency. Im proved. 2. Hypokalemia secondary to Florinef. Improved. 3. Benign hypertension. Blood pressure high. Partially due to Florinef and IV fluids. 4. Adrenal insufficiency maintained on Florinef. Plan: Replace potassium. 20 mEq today. Hep-Lock IV fluids. Decrease Florinef to 0.1 mg once daily. Anticipate discharge soon. Repeat BMP 2-3 days postdischarge. Follow up outpatient in 1-2 weeks. Will also need to follow-up with endocrinology outpatient.
--- NOTE | 2020-01-09 15:44 | P.DS ---
Providers Date of admission: 01/06/20 17:17 Expected date of discharge: 01/09/20 Attending physician: Merlin Heard MD Consults: 01/06/20 17:18 Consult Physician Routine Consulting Provider: Lala Curiel Consult Reason/Comments: Electrolyte abnormality Do you want consulting provider notified?: Yes Primary care physician: Nikia Villaseñor MD Hospital Course: Final diagnosis 1. Acute syncope possibly related to multiple electrolyte 2. Severe hyponatremia 3. Critical hyperkalemia 4. Critical hypomagnesemia 5. Chronic intermittent asthma; not in exacerbation 6. Hypertension 7. Adrenal insufficiency 8. DVT prophylaxis Discharge disposition Patient is being discharged in a stable condition with guarded prognosis to home. Patient will follow-up with Dr. Bae in the outpatient setting upon discharge. Patient will also follow-up with Dr. Toure in the outpatient setting for results. Patient will continue on oral antibiotics in the form of Levaquin 500 mg daily along with Flagyl 500 mg 3 times daily for the next 7 days. Patient will also continue on Protonix twice daily. Total time taken is greater than 35 minutes. History of present illness This is a 59-year-old male who was recently admitted with syncope and electrolyte imbalance and was being closely monitored. Patient has been evaluated by nephrology and will continue on Florinef once daily. Bumex has been discontinued. Recommended repeat labs in 2-3 days to monitor Electrolytes. Patient will also follow-up with endocrine in the outpatient setting for adrenal insufficiency. Patient's potassium has been replaced and is currently 3.5. Currently no reports of chest pain, shortness of breath, or palpitations. Patient is afebrile. No reports of nausea or vomiting and patient is tolerating diet. Patient will be discharged home today. On exam vital signs are stable. Temp is 97.8F, pulse is 83, respirations are 19, blood pressure is 174/87, oxygen saturation is 98% on room air. Cardio S1, S2 are muffled. Respiratory system shows diminished breath sounds at the bases with no wheezing or rhonchi noted. Abdomen is soft and nontender. Nervous system shows no focal deficits. Please refer to medication reconciliation sheet for a list of medications. Patient Condition at Discharge: Stable Plan - Discharge Summary Discharge Rx Participant: Yes New Discharge Prescriptions: New amLODIPine [Norvasc] 10 mg PO DAILY 30 Days #30 tab Continue Montelukast Sodium [Singulair] 10 mg PO HS Cetirizine HCl 10 mg PO HS Omeprazole 20 mg PO TID Losartan [Cozaar] 50 mg PO BID Isosorbide Mononitrate ER [Imdur] 30 mg PO DAILY Tiotropium [place] [Spiriva Respimat] 2 spray INHALATION RT-DAILY Albuterol Sulfate [Albuterol Sulfate Hfa] 2 puff PO RT-Q4H PRN PRN Reason: Shortness Of Breath Changed Fludrocortisone [Florinef] 0.1 mg PO DAILY #0 Potassium Chloride [Klor-Con 10] 20 meq PO DAILY 30 Days #60 tab Discontinued Bumetanide 2 mg PO TID Discharge Medication List Albuterol Sulfate [Albuterol Sulfate Hfa] 2 puff PO RT-Q4H PRN 01/06/20 [History] Cetirizine HCl 10 mg PO HS 01/06/20 [History] Isosorbide Mononitrate ER [Imdur] 30 mg PO DAILY 01/06/20 [History] Losartan [Cozaar] 50 mg PO BID 01/06/20 [History] Montelukast Sodium [Singulair] 10 mg PO HS 01/06/20 [History] Omeprazole 20 mg PO TID 01/06/20 [History] Tiotropium [place] [Spiriva Respimat] 2 spray INHALATION RT-DAILY 01/06/20 [History] Fludrocortisone [Florinef] 0.1 mg PO DAILY #0 01/09/20 [Rx] Potassium Chloride [Klor-Con 10] 20 meq PO DAILY 30 Days #60 tab 01/09/20 [Rx] amLODIPine [Norvasc] 10 mg PO DAILY 30 Days #30 tab 01/09/20 [Rx] Follow up Appointment(s)/Referral(s): Nikia Villaseñor MD [Primary Care Provider] - 1-2 days (office will call you with an appoinment) Clayton Callejas MD [REFERRING] - 1 Week (will need a referral from your primary) Ambulatory/Diagnostic Orders: Basic Metabolic Panel [LAB.AMB] Time Frame: 2 Days, Location: None Selected Patient Instructions/Handouts: Hyponatremia (DC), Hypokalemia (DC), Syncope (DC), Hypomagnesemia (DC) Activity/Diet/Wound Care/Special Instructions: Activity Limited until follow-up Follow-up with primary care provider upon discharge Follow-up with endocrinology in the outpatient setting in 1 week (your MD will need to perform a referral) Repeat labs in 2-3 days Discharge Disposition: HOME SELF-CARE
[2020-01-10] MEDS ORDERED: FLUDROCORTISONE 0.1 MG TAB PO SCH (09:00)
== END 2020-01-09 14:05 | disposition home or self-care (01) | DRG 641 ==
LOC: EC 15:51 → 3SCARD 17:17
PROVIDERS: ADMIT Internal Medicine; ATTEND Internal Medicine
DX: E87.1 Hypo-osmolality and hyponatremia (principal); J90 Pleural effusion, not elsewhere classified; E27.40 Unspecified adrenocortical insufficiency; E87.3 Alkalosis; E83.51 Hypocalcemia; E87.6 Hypokalemia; E83.42 Hypomagnesemia; I10 Essential (primary) hypertension; G89.29 Other chronic pain; M54.9 Dorsalgia, unspecified; R94.31 Abnormal electrocardiogram [ECG] [EKG]; S99.921A Unspecified injury of right foot, initial encounter; S59.901A Unspecified injury of right elbow, initial encounter; E87.5 Hyperkalemia; J45.20 Mild intermittent asthma, uncomplicated; R55 Syncope and collapse; E86.1 Hypovolemia; T50.1X5A Adverse effect of loop [high-ceiling] diuretics, initial encounter; W07.XXXA Fall from chair, initial encounter; Z79.899 Other long term (current) drug therapy; Z79.52 Long term (current) use of systemic steroids; Z88.5 Allergy status to narcotic agent
CPT/HCPCS: 36415; 71046; 80048; 80053; 80320; 81003; 82436; 82533; 82803; 83735; 83935; 84133; 84300; 84484; 85025; 85027; 85610; 85730; 93005; 94640; 94760; 96360; 99285